=== PATIENT | male | born 1960 | race Caucasian/White ===

== ENCOUNTER 2021-11-24 13:35 | Emergency (ER) | payer OTHER ==
[~2021-11-24] VITALS: Ht 190.5 cm; Wt 85.3 kg
[2021-11-24 16:16] LABS: INFLUENZA A ANTIGEN Negative (Negative); INFLUENZA B ANTIGEN Negative (Negative)
[2021-11-24] MEDS ORDERED: TESSALON PERLE100 MG PO (16:29)
[2021-11-24] MEDS ORDERED: MEDROLDOSEPACK PO (16:29)
[2021-11-24] MEDS ORDERED: ZPAK PO (16:43)
== END 2021-11-24 16:04 | disposition left against medical advice (07) ==
LOC: M.ERS 13:35
PROVIDERS: Physician Assistant
DX: J06.9 Acute upper respiratory infection, unspecified (principal)